=== PATIENT | female | born 1975 | race Two or more races ===

== ENCOUNTER 2016-11-14 10:26 | Emergency (ER) | payer MEDICAID, OTHER ==
[2016-11-14 10:56] VITALS: BP 136/83
--- NOTE | 2016-11-14 11:55 | EDM.PDOC ---
ED HPI DIZZINESS - General Chief Complaint: Chest Pain Stated Complaint: DIZZINESS, IRREGULAR HEARTRATE Time Seen by Provider: 11/14/16 11:15 Source of Information: Reports: Patient Exam Limitations: Reports: No limitations - History of Present Illness INITIAL COMMENTS - FREE TEXT/NARRATIVE: Patient presents with complaint of dizziness, lightheadedness (like she could faint) and racing heart. She denies vertigo, fever and vomiting but does feel some nausea. Today this happened about an hour ago while sitting in the bleachers watching her son play a ball game. She got up and moved to a different spot. It lasted about a minute and then went away. Last week during her period she had several episodes like this that leave her feeling kind of hot and anxious. Sometimes they come while she is standing in her kitchen and other times while sitting. Last week she was having them so often that she was afraid to go to sleep so sat in her recliner and dozed on and off all night. Last year she had similar episodes while she had a yeast infection. She also wonders if it could be a start of menopause. She isn't aware of a problem with anxiety. She denies any heart problems or any other medical problems. She takes no medications. - Related Data Allergies/ADRs: Allergies Allergy/AdvReac Type Severity Reaction Status Date / Time No Known Allergies Allergy Verified 11/14/16 10:56 Home Meds: Home Meds . [No Known Home Meds] 07/09/14 [History] Social & Family History - Tobacco Use Smoking Status *Q: Never Smoker Second Hand Smoke Exposure: No - Caffeine Use Caffeine Use: Reports: Coffee - Alcohol Use Days Per Week of Alcohol Use: 0 - Recreational Drug Use Recreational Drug Use: No ED ROS GENERAL - Review of Systems Review Of Systems: See Below Constitutional: Denies: fever, chills, weakness HEENT: Denies: Vertigo, Vision change Respiratory: Denies: Shortness of Breath, Cough Cardiovascular: Reports: Lightheadedness, Palpitations. Denies: Chest pain, Syncope GI/Abdominal: Reports: Nausea. Denies: Abdominal pain, Vomiting : Denies: dysuria, flank pain, frequency, urgency Musculoskeletal: Reports: no symptoms Skin: Reports: no symptoms Neurological: Reports: Dizziness. Denies: Confusion, Headache, Seizure, Syncope , Trouble Speaking, Difficulty Walking Psychiatric: Denies: Agitation, Anxiety, Confusion ED EXAM, DIZZINESS - Physical Exam Exam: See Below Exam Limited By: No limitations General Appearance: alert, WD/WN, no apparent distress Eye Exam: bilateral eye: EOMI, normal inspection, PERRL Ears: normal external exam, hearing grossly normal Throat/Mouth: Normal lips, Normal voice, No airway compromise Head Exam: atraumatic, normocephalic Neck: full range of motion Respiratory/Chest: no respiratory distress, lungs clear, normal breath sounds Cardiovascular: no murmur, tachycardia (mild sinus) GI/Abdominal: normal bowel sounds, soft, non tender, no organomegaly, no distention Neurological: alert, normal mood/affect, no motor/sensory deficits, oriented x 3 Back Exam: No: CVA tenderness (L), CVA tenderness (R) Extremities: normal range of motion Psychiatric: normal affect, anxious Skin Exam: Warm, Dry, Intact, Normal color, No rash Course - Vital Signs Last Recorded V/S: Last Vital Signs Temp 98.6 F 11/14/16 10:53 Pulse 114 H 11/14/16 10:53 Resp 16 11/14/16 10:53 BP 136/83 11/14/16 10:53 Pulse Ox 96 11/14/16 10:53 - Orders/Labs/Meds Orders: Active Orders 24 hr Category Date Time Status EKG Documentation Completion [RC] ASDIRECTED Care 11/14/16 10:59 Active Chest 2V [CR] Stat Exams 11/14/16 10:57 Ordered BASIC METABOLIC PANEL,BMP [CHEM] Stat Lab 11/14/16 10:57 Ordered CBC WITH AUTO DIFF [HEME] Stat Lab 11/14/16 10:57 Ordered TROPONIN I [CHEM] Stat Lab 11/14/16 10:57 Ordered UA W/MICROSCOPIC [URIN] Stat Lab 11/14/16 11:17 Uncollected EKG 12 Lead [EK] Routine Ther 11/14/16 10:57 Ordered - Re-Assessments/Exams Free Text/Narrative Re-Assessment/Exam: 11/14/16 12:11 While in ER she had another episode which was caught on telemetry showing a sinus tach in the 150's. CXR is normal. 11/14/16 12:45 UTI. Discussed findings and treatment plan with patient. She was discharged in stable condition with first 4 doses to cover through the weekend and Rx for the remainder. Departure - Departure Time of Disposition: 12:43 Disposition: Home, Self-Care 01 Condition: good Clinical Impression: UTI (urinary tract infection) Qualifiers: Urinary tract infection type: acute cystitis Hematuria presence: without hematuria Qualified Code(s): N30.00 - Acute cystitis without hematuria Forms: ED Department Discharge Additional Instructions: 1. Take the Nitrofurantoin as directed. 2. Drink 8 cups of water daily. 3. Follow up with your PCP in a week for recheck. 4. Recheck sooner if worsening. - My Orders Last 24 Hours: My Active Orders 11/14/16 10:57 Chest 2V [CR] Stat BASIC METABOLIC PANEL,BMP [CHEM] Stat CBC WITH AUTO DIFF [HEME] Stat TROPONIN I [CHEM] Stat EKG 12 Lead [EK] Routine 11/14/16 10:59 EKG Documentation Completion [RC] ASDIRECTED 11/14/16 11:17 UA W/MICROSCOPIC [URIN] Stat - Assessment/Plan Last 24 Hours: My Active Orders 11/14/16 10:57 Chest 2V [CR] Stat BASIC METABOLIC PANEL,BMP [CHEM] Stat CBC WITH AUTO DIFF [HEME] Stat TROPONIN I [CHEM] Stat EKG 12 Lead [EK] Routine 11/14/16 10:59 EKG Documentation Completion [RC] ASDIRECTED 11/14/16 11:17 UA W/MICROSCOPIC [URIN] Stat
[2016-11-14 12:06] LABS: CHLORIDE,CL 102 mmol/L (98-115); SODIUM,NA 143 mmol/L (136-145)
[2016-11-14] MEDS ORDERED: Nitrofurantoin Macrocrystal 50 MG Cap PO ONE (12:24)
[2016-11-14] MEDS ORDERED: Nitrofurantoin Monohydrate/Macrocrystalline 100 MG Cap ONE (12:25)
[2016-11-14] MEDS ORDERED: LORazepam 2 MG/ML MDV ONE (13:01)
== END 2016-11-14 12:55 | disposition home or self-care (01) ==
LOC: KA.ED 10:26
DX: N30.00 Acute cystitis without hematuria (principal)
CPT/HCPCS: 36415; 71020; 80048; 81001; 84443; 84484; 85025; 87086; 87088; 87186; 93005; 99285; A9270-GY

== ENCOUNTER 2019-04-12 03:46 | Emergency (ER) | payer MEDICAID, OTHER ==
[2019-04-12 04:09] VITALS: BP 127/85; PULSE 100
--- NOTE | 2019-04-12 04:20 | EDM.PDOC ---
ED HPI GENERAL MEDICAL PROBLEM - General Chief Complaint: General Stated Complaint: Sore throat Time Seen by Provider: 04/12/19 04:10 Source of Information: Reports: Patient History Limitations: Reports: No Limitations - History of Present Illness INITIAL COMMENTS - FREE TEXT/NARRATIVE: 44 YO HF presents to ER complaining of sore throat x 3 days. Pt reports she has tried salt water gargles as well as other home remedies without relief. Pt denies fever/chills, no nausea/vomiting, no difficulty breathing. Pt reports pain worse with swallowing. Pt with history of strep infections in the past. Onset Date: 04/09/19 Duration: Day(s): (3) Quality: Reports: Burning Severity: Moderate Improves with: Reports: None Worsens with: Reports: Other (swallowing) Associated Symptoms: Reports: No Other Symptoms Throat Pain Score (Numeric/FACES): 7 - Related Data Allergies Allergy/AdvReac Type Severity Reaction Status Date / Time No Known Allergies Allergy Verified 04/12/19 03:52 Home Meds: Home Meds Amoxicillin 875 mg PO TID #20 tab 04/12/19 [Rx] Past Medical History - Past Health History Medical/Surgical History: Denies Medical/Surgical History Social & Family History - Family History Family Medical History: Noncontributory - Tobacco Use Smoking Status *Q: Never Smoker - Caffeine Use Caffeine Use: Reports: Coffee - Recreational Drug Use Recreational Drug Use: No ED ROS GENERAL - Review of Systems Review Of Systems: See Below Constitutional: Denies: Fever, Chills HEENT: Reports: Throat Pain Respiratory: Reports: No Symptoms Cardiovascular: Reports: No Symptoms Endocrine: Reports: No Symptoms GI/Abdominal: Reports: No Symptoms : Reports: No Symptoms Musculoskeletal: Reports: No Symptoms Skin: Reports: No Symptoms Neurological: Reports: No Symptoms Psychiatric: Reports: No Symptoms Hematologic/Lymphatic: Reports: No Symptoms Immunologic: Reports: No Symptoms ED EXAM, GENERAL - Physical Exam Exam: See Below Exam Limited By: No Limitations General Appearance: Alert, WD/WN, No Apparent Distress Ears: Normal External Exam, Normal Canal, Hearing Grossly Normal, Normal TMs Ear Exam: Bilateral Ear: Auricle Normal, Canal Normal, TM normal Nose: Normal Inspection, Normal Mucosa, No Blood Throat/Mouth: Normal Lips, Normal Teeth, Normal Gums, Normal Voice, No Airway Compromise, Dysphagia, Inflammation Head: Atraumatic, Normocephalic Neck: Normal Inspection, Supple, Non-Tender, Full Range of Motion Respiratory/Chest: No Respiratory Distress, Lungs Clear, Normal Breath Sounds, No Accessory Muscle Use, Chest Non-Tender Cardiovascular: Normal Peripheral Pulses, Regular Rate, Rhythm, No Edema, No Gallop, No JVD, No Murmur, No Rub GI/Abdominal: Normal Bowel Sounds, Soft, Non-Tender, No Organomegaly, No Distention, No Abnormal Bruit, No Mass Back Exam: Normal Inspection, Full Range of Motion, NT Extremities: Normal Inspection, Normal Range of Motion, Non-Tender, Normal Capillary Refill, No Pedal Edema Neurological: Alert, Oriented, CN II-XII Intact, Normal Cognition, Normal Gait, Normal Reflexes, No Motor/Sensory Deficits Psychiatric: Normal Affect, Normal Mood Skin Exam: Warm, Dry, Intact, Normal Color, No Rash Lymphatic: Other (anterior cervical lymphadenopathy) Course - Vital Signs Last Recorded V/S: Last Vital Signs Temp 36.1 C 04/12/19 04:06 Pulse 100 04/12/19 04:06 Resp 20 04/12/19 04:06 BP 127/85 04/12/19 04:06 Pulse Ox 94 L 04/12/19 04:06 - Orders/Labs/Meds Orders: Active Orders 24 hr Category Date Time Status Amoxicillin [Amoxil] Med 04/12/19 04:33 Once 500 mg PO ONETIME ONE Meds: Medications Discontinued Medications Generic Name Dose Route Start Last Admin Trade Name Freq PRN Reason Stop Dose Admin Amoxicillin 875 mg 04/12/19 04:28 Amoxil PO 04/12/19 04:29 ONETIME ONE Departure - Departure Time of Disposition: 04:35 Disposition: Home, Self-Care 01 Condition: Good Clinical Impression: Strep pharyngitis - Discharge Information Prescriptions: Amoxicillin 875 mg PO TID #20 tab Instructions: Pharyngitis, [id number] Referrals: Mis Mcnamara PA-C [Primary Care Provider] - Forms: ED Department Discharge Additional Instructions: 1. discharge home 2. amoxil 875mg PO BID x 10days 3. motrin 600mg PO Q6 x 5 days 4. follow up in clinic if no improvement 48-72 hours 5. return to ER for worsening symptoms - My Orders Last 24 Hours: My Active Orders 04/12/19 04:33 Amoxicillin [Amoxil] 500 mg PO ONETIME ONE - Assessment/Plan Last 24 Hours: My Active Orders 04/12/19 04:33 Amoxicillin [Amoxil] 500 mg PO ONETIME ONE Assessment:: 1. strep throat Plan: 1. discharge home 2. amoxil 875mg PO BID x 10days 3. motrin 600mg PO Q6 x 5 days 4. follow up in clinic if no improvement 48-72 hours 5. return to ER for worsening symptoms
[2019-04-12] MEDS ORDERED: Amoxicillin 875 MG Tab PO ONE (04:28)
[2019-04-12] MEDS ORDERED: Amoxicillin 500 MG Cap PO ONE (04:33)
== END 2019-04-12 04:50 | disposition home or self-care (01) ==
LOC: KA.ED 03:46
DX: J02.0 Streptococcal pharyngitis (principal); R59.0 Localized enlarged lymph nodes
CPT/HCPCS: 99282; A9270

== ENCOUNTER 2024-04-10 17:50 | Emergency (ER) | payer MEDICAID ==
[2024-04-10 18:30] VITALS: BP 135/87; PULSE 89
[2024-04-10] MEDS: Acetaminophen/HYDROcodone 325-5 MG Tab PO ONE (19:05)
== END 2024-04-10 19:15 | disposition home or self-care (01) ==
LOC: KA.ED 17:50
DX: G89.18 Other acute postprocedural pain (principal); M79.641 Pain in right hand; E11.9 Type 2 diabetes mellitus without complications; Z79.84 Long term (current) use of oral hypoglycemic drugs; Z79.899 Other long term (current) drug therapy; Z90.49 Acquired absence of other specified parts of digestive tract
CPT/HCPCS: 99283; A9270-GY

== ENCOUNTER 2024-05-27 23:18 | Emergency (ER) | payer MEDICAID ==
[2024-05-27 23:28] VITALS: BP 147/89
[2024-05-27 23:38] LABS: BASOPHILS ABSOLUTE AUTO 0.03 10^3/uL (0.00-0.10); BASOPHILS PERCENT AUTO 0.2 % (0.0-1.0); EOSINOPHILS ABSOLUTE AUTO 0.56 10^3/uL (0.10-0.30); EOSINOPHILS PERCENT AUTO 4.4 % (1.0-3.0); HEMATOCRIT 39.6 % (37.0-47.0); HEMOGLOBIN 12.4 g/dL (12.0-16.0); IMMATURE GRAN ABSOLUTE AUTO 0.04 10^3/uL (0.00-0.50); IMMATURE GRAN PERCENT AUTO 0.3 % (0.0-5.0); LYMPHOCYTES ABSOLUTE AUTO 2.83 10^3/uL (1.00-4.00); LYMPHOCYTES PERCENT AUTO 22.5 % (20.0-40.0); MEAN CORPUSCULAR HEMOGLOBIN 26.3 pg (27.0-31.0); MEAN CORPUSCULAR HGB CONC 31.3 g/dL (32.0-36.0); MEAN CORPUSCULAR VOLUME 83.9 fL (82.0-92.0); MEAN PLATELET VOLUME 10.6 fL (7.4-10.4); MONOCYTES ABSOLUTE AUTO 1.08 10^3/uL (0.10-0.80); MONOCYTES PERCENT AUTO 8.6 % (2.0-8.0); NEUTROPHILS ABSOLUTE AUTO 8.06 10^3/uL (2.50-7.00); PLATELET COUNT,PLT 310 10^3/uL (150-400); RED BLOOD CELL COUNT 4.72 10^6/uL (3.80-5.50); RED CELL DISTRIBUTION WIDTH 14.6 % (11.5-14.5)
[2024-05-27 23:53] LABS: ALBUMIN 3.28 g/dL (3.40-5.00); ANION GAP 12.7 mmol/L (5-15); BILIRUBIN TOTAL 0.2 mg/dL (0.2-1.0); C-REACTIVE PROTEIN 4.31 mg/dL (0.00-0.50); CALCIUM 9.1 mg/dL (8.7-10.3); CARBON DIOXIDE,CO2 27.5 mmol/L (21.0-32.0); CREATININE 0.5 mg/dL (0.51-1.17); EST CRCL DRUG DOSING (CG) 107.64 mL/min; POTASSIUM,K 4.2 mmol/L (3.5-5.1)
[2024-05-28 00:14] LABS: INFLUENZA A NAA NEGATIVE (NEGATIVE); INFLUENZA B NAA NEGATIVE (NEGATIVE); RESPIRATORY SYNCYTIAL VIR NAA NEGATIVE (NEGATIVE)
[2024-05-28 00:15] LABS: CORONAVIRUS COVID-19 NAA NEGATIVE (NEGATIVE)
[2024-05-28] MEDS: predniSONE 20 MG Tab PO ONE (00:17)
[2024-05-28] MEDS: Azithromycin 250 MG Tab PO ONE (00:17)
[2024-05-28 00:32] VITALS: PULSE 98
== END 2024-05-28 00:25 | disposition home or self-care (01) ==
LOC: KA.ED 23:18
DX: J06.9 Acute upper respiratory infection, unspecified (principal); B97.89 Other viral agents as the cause of diseases classified elsewhere; E11.9 Type 2 diabetes mellitus without complications; E66.9 Obesity, unspecified; Z68.42 Body mass index [BMI] 45.0-49.9, adult; Z79.84 Long term (current) use of oral hypoglycemic drugs; Z79.899 Other long term (current) drug therapy
CPT/HCPCS: 0241U; 36415; 71045; 80053; 85025; 86140; 99283; A9270-GY; J7512